=== PATIENT | male | born 1935 | race Caucasian/White ===

== ENCOUNTER 2016-09-13 10:49 | Inpatient (IN) | payer MEDICARE, BC ==
--- NOTE | ~2016-09-13 | MR60 ---
[facility] A Service of [facility] RADIOLOGY TEXT RESULTS PATIENT: CORBY SUBRAMANIAN LOCATION: [facility] 566-01 : 36 UNIT #: [id number] AGE: [address]: Jah Muller MD SEX: M ORDER DR: [id number] [facility] [address]. [place], [place] [address] [id number] I MR#: [id number] Acc #: [id number] NAME: CORBY SUBRAMANIAN. : 1935 SEX: M STUDY DATE/TIME: 09/14/2016 22:26 UNIT: [facility] ROOM: [facility] STUDY DESCRIPTION: MR Foot Wo Contrast Lt Attending Physician: Jah Muller M.D. Ordering Physician: Jah Muller M.D. Primary Care Physician: Jah Muller M.D. MRI CENTER REPORT This report is preliminary unless electronic signature is present. EXAM MRI of the left ankle and foot without contrast, 09/14/2016. COMPARISON MRI of the left ankle and hindfoot, 03/02/2016. HISTORY Order states MRI both feet, osteomyelitis. History sheet states chronic sores on feet. Diabetes. Sores on heels and toes. Left foot surgery March 2016, left foot debridement. COMPARISON MRI left foot 03/02/2016 and consultation report 09/13/2016. FINDINGS No contrast was utilized as the patient is on hemodialysis for renal failure. It is unclear if the patient has undergone interval surgery for the lateral heel wound. There is a large at least 3.6 x 2.6 (AP by craniocaudal) wound or ulceration along of the lateral hindfoot adjacent to the calcaneus. Compared to 03/02/2016, there is progressive posterolateral calcaneal edema, debridement/deformity, low signal correlating with sclerosis, and peripheral T1 marrow replacement compatible with osteomyelitis. There is no noncontrast evidence of soft tissue or intraosseous abscess. The patient is status post amputation of the fourth toe at the level of the proximal aspect of the proximal phalanx. There is also evidence of resection of the distal fifth metatarsal with associated forefoot soft tissue deformity. Specific locations of forefoot or toe wound is not known at the time of this dictation. No large or sizeable wounds are STS. [facility] A Service of [facility] RADIOLOGY TEXT RESULTS PATIENT: CORBY SUBRAMANIAN LOCATION: [facility] 566-01 : 36 UNIT #: [id number] AGE: [address]: Jah Muller MD SEX: M ORDER DR: noted. There is no forefoot fluid collection to suggest an abscess. There is dorsolateral forefoot subcutaneous edema. There is no evidence of midfoot or forefoot osteomyelitis. No septic arthritis is noted. Generalized muscle atrophy with a mild component of edema is compatible with variable phases of muscle denervation, most commonly seen in the setting of peripheral neuropathy in a diabetic. No high-grade tendon pathology is noted. IMPRESSION 1. Progressive wound and/or debridement of the posterolateral heel soft tissues with MR findings compatible with progressive osteomyelitis. 2. No hindfoot abscess is noted. 3. Reportedly, the patient has open sores of the toes. Specific location is not known at the time of this dictation. No visible sizeable wounds are present. Postoperative changes of the fourth and fifth rays is present with soft tissue deformity. The midfoot and forefoot show no evidence of osteomyelitis or abscess. 4. No evidence of septic arthritis. 5. Subcutaneous edema in the dorsolateral hindfoot may be postoperative in etiology. Correlate for cellulitis. 6. Areas of muscle diffuse muscle atrophy with some areas of edema likely due to variable stages of muscle denervation, most commonly due to peripheral neuropathy in a diabetic. 7. See separate MRI right foot report. STAT * RESULT Dictated by... Kassidy Hall M.D. THIS IS AN ELECTRONICALLY VERIFIED REPORT Kassidy Hall M.D. at 09/15/2016 10:39 AM RITIKA/dorota TD: 09/15/2016 09:22 JOB #: [id number] MRI CENTER REPORT Page 1 of 1 COPY
--- NOTE | ~2016-09-13 | EKG ---
PATIENT: CORBY SUBRAMANIAN UNIT #: [id number] Ventricular Rate: 85 BPM Atrial Rate: 85 BPM P-R Interval: 304 ms QRS Duration: 74 ms Q-T Interval: 362 ms QTC Calculation(Bezet): 430 ms P Harmony: 30 degrees Calculated R Harmony: 46 degrees Calculated T Harmony: 50 degrees Diagnosis Line: Sinus rhythm with sinus arrhythmia with 1st degree Diagnosis Line: A-V block Diagnosis Line: Otherwise normal ECG Diagnosis Line: When compared with ECG of 14-SEP-2016 08:29, Diagnosis Line: (unconfirmed) Diagnosis Line: No significant change was found Diagnosis Line: Confirmed by RIA JONES MD ([id number]) on 09/15/2016 Diagnosis Line: 4:27:44 PM INTERPRETING MD: KAERN MATIAS
--- NOTE | ~2016-09-13 | CR124 ---
[facility] A Service of [facility] RADIOLOGY TEXT RESULTS PATIENT: CORBY SUBRAMANIAN LOCATION: [facility] 566-01 : 36 UNIT #: [id number] AGE: [address]: Jah Muller MD SEX: M ORDER DR: [id number] [facility] [address]. [place], [place] [address] [id number] I MR#: [id number] Acc #: [id number] NAME: CORBY SUBRAMANIAN : 1935 SEX: M STUDY DATE/TIME: 09/13/2016 17:03 UNIT: [facility] ROOM: [id number] STUDY DESCRIPTION: CR Foot 2 Views Rt Attending Physician: Jah Muller M.D. Ordering Physician: [facility] Primary Care Physician: Jah Muller M.D. MEDICAL IMAGING REPORT This report is preliminary unless electronic signature is present EXAM Right foot series 09/13/2016 HISTORY Wound. Pain, swelling, redness, diabetic ulcers, 3 toes amputated. Symptoms 4 months. History of diabetes. Pain, swelling, numbness. AP, lateral and oblique radiographs of the right foot are presented. FINDINGS Abnormal examination. The patient is status post amputation of digital rays 3, 4 and 5. These postoperative changes are stable. In the interval from 06/14/2016 there appears to have been fracture of the distal shaft of the second metatarsal bone. There is incomplete healing. It is conceivable that some portion of the appearance could be postoperative in nature. Please correlate with any surgery to this region. There are some bone fragments remaining at the level of the distal shaft/head of the second metatarsal and there is abnormal air density at this location as well. Associated prominent soft tissue swelling particularly over the dorsal aspect of the foot but also involving the plantar aspect. The constellation of findings is concerning for possible osteomyelitis involving the distal second metatarsal bone. The air density in this region could in part be a reflection of skin folds on the plantar aspect of the foot. Soft tissue ulceration containing air or soft tissue infection with gas forming organism should be in the differential diagnosis as well. The base of the proximal phalanx of the second digit shows irregular bony demineralization new compared to May 2016 and further concerning for osteomyelitis at this location. The first digital ray shows generalized bony demineralization. There is a subtle area of new lucency lateral aspect base of the proximal phalanx of the great toe. Given findings elsewhere on this study, the possibility of developing osteomyelitis at this location is a consideration. Extensive soft tissue STS. [facility] A Service of [facility] RADIOLOGY TEXT RESULTS PATIENT: CORBY SUBRAMANIAN LOCATION: [facility] 566-01 : 36 UNIT #: [id number] AGE: [address]: Jah Muller MD SEX: M ORDER DR: swelling is noted. Soft tissue swelling extends into the visualized distal foreleg. Extensive vascular calcification. If it would assist in patient management, the foot could be further evaluated for potential sites of osteomyelitis with MRI if the patient is a candidate. Dictated by... Xavier Desai M.D. THIS IS AN ELECTRONICALLY VERIFIED REPORT Xavier Desai M.D. at 09/14/2016 5:55 PM Hoda TD: 09/13/2016 17:27 JOB #: [id number] MEDICAL IMAGING REPORT Page 1 of 1 COPY
--- NOTE | ~2016-09-13 | CO ---
Unit #: [id number] #: [id number] Patient: CORBY SUBRAMANIAN [id number] [facility]. [place], [place] [address] [id number] I MR#: [id number] NAME: CORBY SUBRAMANIAN. ROOM: 566 Age: 80 Sex: M Admission Date: 09/13/2016 : 1935 Attending Physician: Jah Muller M.D. Primary Care Physician: Jah Muller M.D. Consultation Date: 09/14/2016 CONSULTATION REPORT REASON FOR CONSULTATION Possible new onset atrial fibrillation. 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 The patient denies ever having a mild cardioversion, cardiac catheterization or a two-dimensional echocardiogram. 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 The patient presented to the emergency room with complaints of mental status changes, confusion, and found himself on the floor the morning prior to admission. His random blood sugar was essentially okay. His workup was essentially unremarkable except for a hemoglobin of 7.1 and some pulmonary vascular congestion, even though his oxygen saturation was 92% on room air. The patient was admitted for further evaluation. During my interview the patient is awake and alert, in no acute distress. He denies any nausea, vomiting, fever, chest pain or shortness of air. He does endorse some chills. The patient states he has never been told he has an irregular heart rhythm before. Cardiology was consulted for possible new onset atrial fibrillation. PAST MEDICAL HISTORY 1. The patient denies any history of irregular heart rhythm, myocardial infarction, cardiac catheterization, stress test or two-dimensional echocardiogram. 2. Most recent hospital admission to [facility] was in 02/2016 for acute left diabetic heel ulcer with gangrene and debridement of that ulcer. 3. Diabetes type 2 with peripheral neuropathy, retinopathy and nephropathy. 4. Endstage renal disease on hemodialysis Mondays, Wednesdays and Fridays. 5. BPH. 6. Lumbar stenosis. 7. Hypothyroidism. 8. Chronic anemia. 9. Orthostatic hypotension. 10. Peripheral arterial disease. Unit #: [id number] #: [id number] Patient: CORBY SUBRAMANIAN 11. Gout. 12. Gallstones. 13. Hypothyroidism. 14. Large ventral abdominal wall hernia. 15. Possible restrictive lung disease. 16. Chronic immobility. 17. Hypertension. PAST SURGICAL HISTORY 1. Debridement of left diabetic gangrene ulcer in 02/2016. 2. Left fourth toe amputation. 3. Right last three toes amputation. 4. Multiple diabetic foot debridements. 5. Tonsillectomy. SOCIAL HISTORY The patient is and lives with his . He does use a wheelchair at home. He denies any tobacco, alcohol or illicit drug abuse. FAMILY HISTORY The patient reports that his father of myocardial infarction at the age of 63. ALLERGIES Penicillin. CURRENT MEDICATIONS 1. Lantus 6 units subcutaneous at bedtime. 2. Allopurinol 100 mg p.o. daily. 3. Neurontin 100 mg p.o. t.i.d. 4. Multivitamin 1 tablet p.o. daily. 5. OxyContin 10/325 mg 1 tablet p.o. q.i.d. 6. Synthroid 0.112 mcg p.o. daily. 7. Flomax 0.4 mg p.o. daily at bedtime. 8. Aspirin 81 mg p.o. daily. 9. Plavix 75 mg p.o. daily. 10. Tobramycin. 11. Vancomycin. 12. Flagyl 500 mg p.o. q.8 h. 13. Diflucan 200 mg p.o. daily. REVIEW OF SYSTEMS A 10-point review of systems was done and is negative other than as per history of present illness. PHYSICAL EXAMINATION GENERAL: The patient is awake, alert and in no acute distress. VITALS: Temperature 98.4, heart rate 72, respiratory rate 20, blood pressure 100/34, oxygen saturation 96% on room air. HEENT: Head is atraumatic, normocephalic. Pupils equal, round and reactive to light. (1) intact. No drainage from ears or nares. NECK: Supple. Trachea midline. Normal carotid upstrokes. LUNGS: Diminished bilaterally. No wheezes, rales or rhonchi. HEART: S1 and S2. Regular rhythm. No murmurs, rubs or gallops. ABDOMEN: Soft, distended. Bowel sounds positive in all four quadrants. No hepatosplenomegaly is appreciated. SKIN: Warm and dry. The patient does have multiple bilateral lower extremity ulcers on his legs. Unit #: [id number] #: [id number] Patient: CORBY SUBRAMANIAN EXTREMITIES: No clubbing or cyanosis. The patient does have 1+ bilateral lower extremity edema. NEUROLOGIC: The patient is alert and oriented times three. He is pleasant and conversant. No focal deficits. Cranial nerves II through XII appear to be intact. DIAGNOSTIC STUDIES IMAGING: Chest x-ray shows vascular congestion. LABORATORY: White blood cell count 6.8, hemoglobin 8.5, hematocrit 26.5, platelets 225, sodium 136, potassium 4.3, chloride 100, CO2 26, BUN 24, creatinine 3.6, glucose 126. CARDIOVASCULAR: EKG shows sinus arrhythmia. Telemetry strips appear to show sinus rhythm with a second degree AV block with PACs and PVCs. ASSESSMENT 1. Sinus rhythm with second degree AV block with PACs and PVCs. 2. Altered mental status, now resolved. 3. Diabetes type 2 with retinopathy, neuropathy and nephropathy. 4. Peripheral artery disease. 5. Bilateral foot ulcers. 6. BPH. 7. Lumbar stenosis with immobility. 8. Left lower extremity edema. 9. Vascular congestion per chest x-ray. 10. Endstage renal disease on hemodialysis Mondays, Wednesdays and Fridays. 11. Hypertension. 12. Gout. 13. Possible restrictive lung disease. PLAN I agree with checking a two-dimensional echocardiogram and lower extremity Dopplers on the patient. Will also check a TSH, lipid panel and cardiac enzymes. Will check orthostatics. Will discuss with Dr. Bullock. At this time I do not feel that the rhythm strip shows atrial fibrillation. However, I will have Dr. Bullock to fully evaluate the patient. Again, the patient denies any history of atrial fibrillation and denies any chest pain. Dictated by... Carmen Hinds A.P.R.N. for Kayden Bullock M.D. AM/jonathan TD: 09/14/2016 09:51 JOB #: [id number] Unit #: [id number] #: [id number] Patient: CORBY SUBRAMANIAN CONSULTATION REPORT Page 1 of 1 X Carmen Hinds APRN CONSULTATION REPORT
--- NOTE | ~2016-09-13 | US84 ---
[id number] [facility] [address]. [place], [place] [address] [id number] I MR#: [id number] Acc #: [id number] NAME: CORBY SUBRAMANIAN : 1935 SEX: M STUDY DATE/TIME: 09/15/2016 14:54 UNIT: [facility] ROOM: 566 STUDY DESCRIPTION: US LE Veins Complete Ra Stdy Attending Physician: Jah Muller M.D. Ordering Physician: Jah Muller M.D. Primary Care Physician: Jah Muller M.D. MEDICAL IMAGING REPORT This report is preliminary unless electronic signature is present EXAM Bilateral lower extremity venous duplex, 09/15/2016. HISTORY Bilateral lower extremity pain for 2 days. Evaluate for deep venous thrombosis. TECHNIQUE Venous ultrasound examination of both lower extremities was performed using grayscale, spectral Doppler and color flow Doppler imaging. FINDINGS The examination is negative. There is no evidence of deep venous thrombus from the groin to the lower calf bilaterally. Visualized greater saphenous veins are also patent. IMPRESSION Negative examination. No evidence of lower extremity deep venous thrombosis. Dictated by... Manuel Myles M.D. THIS IS AN ELECTRONICALLY VERIFIED REPORT Manuel Myles M.D. at 09/18/2016 7:38 AM HEAVENLY/kartik TD: 09/15/2016 18:57 JOB #: [id number] MEDICAL IMAGING REPORT Page 1 of 1 COPY
--- NOTE | ~2016-09-13 | CO ---
Unit #: [id number] #: [id number] Patient: CORBY SUBRAMANIAN [id number] [facility] [address] [facility]. [place], [place] [address] [id number] I MR#: [id number] NAME: CORBY SUBRAMANIAN. ROOM: 566 Age: 80 Sex: M Admission Date: 09/13/2016 : 1935 Attending Physician: Jah Muller M.D. Primary Care Physician: Jah Muller M.D. Consultation Date: 09/13/2016 CONSULTATION REPORT REASON FOR CONSULTATION Change in mental status. PATIENT IDENTIFICATION This is a 80-year-old right-handed male evaluated in ER room 15 at [facility]. SOURCE OF INFORMATION Obtained from the patient as well as the medical record. HISTORY OF PRESENT ILLNESS This is a very pleasant 80-year-old right-handed male with the past medical history of end-stage renal disease on hemodialysis, diabetes mellitus with diabetic retinopathy, nephropathy and neuropathy, hypertension, COPD, peripheral arterial disease and other multiple medical issues, who presented to [facility] after family called EMS regarding a change in mental status. He personally is aware that he had a change in mental status but is still mildly confused, I am uncertain of his baseline. He can give some history but I am uncertain of how reliable he is. I did make an attempt to call his via the telephone and was unable to reach her at this time. He is oriented to person and place. He can tell me that it is Sunday, he believes it to be September 2016. According to the EMS sheet, the patient had an onset of confusion about three days ago and has had some intermittent confusion. Per EMS, family had called regarding his altered mental status and confusion, apparently he was hearing roosters in his head. When I spoke with the patient, he admits to hearing birds flying around in his head and admits that they were not there but that he heard them. He states that he felt a little bit confused this morning. He states he actually was asleep and woke up on the floor and was uncertain how he got there. He denies any headache, fever or chills. He denies any focal weakness or paresthesia, any loss of consciousness or loss of awareness. He denies any abdominal pain, nausea, vomiting, palpitations, double vision, blurred vision, loss of vision, neck pain, or speech changes. Again, he is oriented though has some difficulty with time. He has clear speech. Cognitively, though, he does have some difficulty following some commands. He does have some difficulty with short-term recall but nothing on exam currently to suggest an acute primary neurologic issues. His head CT done in the ED without contrast, on 09/13/2016, was negative for any acute abnormality in the brain. It does show moderate generalized atrophy and a chronic left paracentral pontine lacunar infarct, not changed from prior study. There appear to be extensive vascular calcifications and mild mucosal thickening in the paranasal sinuses but no indication of acute sinusitis and no fracture. He does have a history of lower extremity Unit #: [id number] #: [id number] Patient: CORBY SUBRAMANIAN wounds and surgery and both of his feet are wrapped. His right lower extremity appears to be edematous with erythema and warm and he complains of pain there. He apparently has not been on antibiotics for some time and states he is supposed to be getting antibiotics from wound care at the [facility] today. His white count is not elevated, it is 8.6. He is anemic with hemoglobin 7.1 and hematocrit 22.0 with normal MCV, MCH and MCHC and RDW 17.1 and platelet count 218. He does have chronic anemia documented in the medical record with hemoglobin running between 7 and 10. Otherwise, labs are essentially unremarkable. His sodium is 133, chloride is 96, calcium 8.2, albumin 2.7, otherwise BMP is unremarkable with the exception of his known end-stage renal disease with a BUN of 45, creatinine 6.2, estimated GFR 7.9. His alcohol level is 5. His chest x-ray does not show any acute findings. There is mild cardiomegaly and mild vascular congestion but no consolidation is seen. Questionable small left pleural effusion versus pleural thickening. His wound culture does show many gram-negative rods and rare gram-positive cocci in pairs. His glucose on arrival was 148. He was admitted for change in mental status, volume overload and anemia of chronic disease. His EKG does show an arrhythmia. On the EKG sheet, it shows atrial fibrillation with slow ventricular response with complex junctional pacemaker though when looking at it he does not appear to actually be in atrial fibrillation. P waves appear to be present. Will defer to Cardiology for pending read. Patient denies any current complaints other than his right lower extremity pain. PAST MEDICAL HISTORY 1. Last visit to [facility] 03/02 through 03/13/2016 for acute left diabetic heel ulcer with gangrene, status post debridement of the left heel ulcer on 03/07/2016. 2. Type 2 diabetes mellitus with diabetic peripheral neuropathy, retinopathy and nephropathy. 3. End-stage renal disease on hemodialysis Sunday, Sunday, and Sunday. 4. BPH. 5. Lumbar spinal stenosis. 6. Hypothyroidism. 7. Chronic anemia. 8. Orthostatic hypotension. 9. Peripheral arterial disease. 10. Gout. 11. Gallstones. 12. Large ventral abdominal wall hernia. 13. Possible restrictive pulmonary disease. 14. Chronic immobility, he uses a wheelchair at baseline. 15. Hypertension. 16. Tonsillectomy. 17. Left fourth toe removal. 18. Right last three toe removals. 19. Multiple foot debridements. ALLERGIES Penicillin. HOME MEDICATIONS His medication reconciliation is being done, there is not a medication list on the chart. He is currently only on normal saline here. According to his Discharge Summary from 2015, he was discharged on: 1. Flomax. 2. Neurontin. Unit #: [id number] #: [id number] Patient: CORBY SUBRAMANIAN 3. Lantus. 4. Zyloprim. 5. Multivitamin. 6. Aspirin. 7. Plavix. 8. Endocet. 9. Synthroid. 10. Tobramycin. 11. Vancomycin. 12. Diflucan. 13. Flagyl. FAMILY HISTORY Noncontributory to the presenting condition. SOCIAL HISTORY The patient is . He lives with his . He uses a wheelchair at baseline. He is able to do things around the house including cooking and cleaning with his wheelchair, I am uncertain of how reliable the patient is, however, regarding his history. He has no documented history of tobacco use, alcohol use, or illicit drug use. He is documented as being and states that he is and lives with his . His is listed as his next of kin. REVIEW OF SYSTEMS A 12-point review of systems was attempted, pertinent positives are as discussed above, otherwise negative. PHYSICAL EXAMINATION VITAL SIGNS: Temperature 98.6 he has been afebrile here, pulse 103, respirations 19, blood pressure 101/47, his blood pressure on arrival was also 101/47, oxygen saturation 96%. Height 6 feet 1 inches, weight 196 pounds, BMI 25. NEUROLOGIC: The patient is awake when I enter the room. He is resting, calm and pleasant and appropriate. He is oriented to person, he is oriented to place. He tells me it is September 2016. He tells me that it is Sunday. He does have some trouble following two- and three-step commands. He has some trouble with short-term recall. Otherwise, his speech is clear, he is not aphasic, dysarthric, or apraxic. He does get confused throughout interview with some questions and commands. CRANIAL NERVES: He demonstrates full johnson of vision. Eyes are conjugate without ptosis or nystagmus. Pupils are equal, round, reactive, 3+ brisk. Extraocular movements are intact. Sensation to face and scalp is intact. Strength of muscles of facial expression is intact. Hearing is intact to finger rub and conversation. Tongue is midline. Uvula is midline. Palate elevation is normal. Head turning and shoulder shrug is unremarkable. He denies headache. His neck is supple. MOTOR: He demonstrates normal bulk and normal tone. His strength is 5/5 in all extremities though he does have a little bit of difficulty with the right lower extremity and complains of pain with assessment of that leg but is at least 5-/5. Again, he does have erythema and edema to the right lower extremity. It is warm and painful to touch distally. SENSORY: Intact proximally, he does have some difficulty distally with differentiating soft touch and pinprick. GAIT AND ROMBERG: Deferred. REFLEXES: I was unable to elicit. Toes are difficult to evaluate as he is wrapped bilaterally around his feet. COORDINATION: Unremarkable. He has no past pointing. Normal Unit #: [id number] #: [id number] Patient: CORBY SUBRAMANIAN [id number]. DIAGNOSTIC STUDIES LABORATORY: As discussed above fully. IMAGING: As discussed above. IMPRESSION 1. Change in mental status with hallucinations and impaired cognition. Appears to be improved currently, question is what is his baseline. 2. Right lower extremity wound, questionable cellulitis. 3. Anemia with history of anemia of chronic disease. 4. End-stage renal disease on hemodialysis. 5. Mild hyponatremia, mild hypocalcemia. PLAN From a neurologic standpoint, we will observe currently. We need to speak with his about what his baseline is and what she observed actually happening that prompted her to call EMS. No report of syncope or any focal neurologic symptoms. Exam is currently nonspecific with no focal deficits reported or observed. He does have some cognitive difficulty but I am uncertain of what his baseline is. He certainly has multiple chronic conditions and generalized atrophy and extensive calcifications on his CT and he is 80 years of age. Nothing currently, however, to suggest an acute primary neurologic etiology. However, will follow the patient along with you and check further metabolic causes for mental status changes and I will discuss the case with Dr. Diallo and we will follow along with you. Will check a B12, folate, urinalysis with C and S if indicated. Please call for any questions or issues. We thank you very much for allowing us to assist in the care of this patient. Dictated by... Lalitha Curry A.P.R.N. for Leena Mo/oswaldo TD: 09/13/2016 21:37 JOB #: [id number] CONSULTATION REPORT Page 1 of 1 X Lalitha Curry PATENT ATTORNEY X CONSULTATION REPORT
--- NOTE | ~2016-09-13 | MR61 ---
[facility] A Service of [facility] & [facility] RADIOLOGY TEXT RESULTS PATIENT: CORBY SUBRAMANIAN LOCATION: [facility] 566-01 : 36 UNIT #: [id number] AGE: [address]: Jah Muller MD SEX: M ORDER DR: [id number] [facility] [address] [facility] [place], [place] [address] [id number] I MR#: [id number] Acc #: [id number] NAME: CORBY SUBRAMANIAN. : 1935 SEX: M STUDY DATE/TIME: 09/14/2016 23:05 UNIT: [facility] ROOM: [facility] STUDY DESCRIPTION: MR Foot Wo Contrast Rt Attending Physician: Jah Muller M.D. Ordering Physician: Jah Muller M.D. Primary Care Physician: Jah Muller M.D. MRI CENTER REPORT This report is preliminary unless electronic signature is present. EXAM MRI of the right ankle and foot, without contrast, 09/14/2016. COMPARISON Right foot radiographs, 09/13/2016, and MRI of the right forefoot, 06/17/2012. Consultation report, 09/13/2016. HISTORY Order states MRI both feet. Osteomyelitis. History sheet states chronic sores on feet. Diabetes. Sores on heels and toes. No reported right foot surgery. 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 Specific location of the wounds is not reported. There is probable skin loss or shallow wound of the plantar medial hindfoot, adjacent to the calcaneus potentially measuring up to 2.7 cm transverse. Correlate clinically. There is no evidence of underlying abscess or osteomyelitis. Skin thickening is suspected of the posterolateral heel. There is an apparent plantar forefoot wound measuring approximately 11 x 5 mm (AP x transverse), with a large confluent zone of soft tissue signal, which could reflect granulation and/or inflammatory tissue located just lateral to the 1st metatarsal head. Tissue necrosis cannot be assessed in the absence of IV contrast. The wound is plantar to the fracture deformity of the distal 2nd metatarsal shaft and absent or destroyed 2nd metatarsal head. There is T1 marrow replacement of the 2nd metatarsal, as well as the proximal phalanx of the 2nd toe, compatible with osteomyelitis. 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 A linear signal void in the soft tissues plantar to the ulcer could reflect a bony fragment, foreign body, etc. [facility] A Service of [facility] RADIOLOGY TEXT RESULTS PATIENT: CORBY SUBRAMANIAN LOCATION: [facility] 566-01 : 36 UNIT #: [id number] AGE: [address]: Jah Muller MD SEX: M ORDER DR: There is a chronic fracture deformity of the proximal phalanx of the great toe. The great toe shows no evidence of osteomyelitis. Distal phalanx of the 2nd toe shows no evidence of osteomyelitis. There is probable osteomyelitis of the middle phalanx of the 2nd toe. There has been a significant change in the appearance of the midfoot since 06/17/2012. There is diffuse T1 marrow replacement of the cuneiforms, navicular, 2nd metatarsal base, and possibly to a minimal degree, the 4th metatarsal base. There are a few small low signal foci in the dorsal aspect of the navicular. Differential considerations lie between midfoot osteomyelitis and/or acute phase neuroarthropathy. There is a small amount of fluid in the deformed navicular-medial cuneiform articulation. No midfoot ulceration is noted. There is generalized muscle atrophy. Subcutaneous edema is noted diffusely, but most prominently in the lower leg and ankle region. Nonspecific marrow edema in the anterior half of the talus and the anterior calcaneus is most likely reactive. There is a small tibiotalar effusion. IMPRESSION 1. Suspected subtle plantar medial heel/calcaneal region skin wound or ulceration without evidence of underlying osteomyelitis or abscess. 2. Plantar forefoot wound or ulceration plantar to the deformed distal 2nd metatarsal with a large zone of underlying abnormal soft tissue, which is difficult to characterize in the absence of IV contrast. Nonetheless, there is evidence of osteomyelitis involving nearly the entire 2nd metatarsal as well as the proximal and probably the middle phalanges of the 2nd toe. There is a linear low signal focus in the soft tissue process deep to the wound, which could reflect a bony fragment, foreign body, etc. No forefoot abscess is noted. 3. 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 4. Significant new severe abnormality throughout the midfoot with extensive T1 marrow replacement, osseous deformities, and potentially even a small amount of gas in the region of the dorsal navicular. Findings are compatible with midfoot extensive osteomyelitis and/or acute phase neuroarthropathy. Small amount of fluid is noted in the region of the dorsal navicular, but there is no mass-like or sizable abscess. 5. Generalized subcutaneous inflammation, edema, or cellulitis. 6. Generalized muscle atrophy. 7. Chronic fracture deformity, proximal phalanx, great toe. STAT * RESULT Dictated by... [facility] A Service of [facility] RADIOLOGY TEXT RESULTS PATIENT: CORBY SUBRAMANIAN LOCATION: [facility] 566-01 : 36 UNIT #: [id number] AGE: [address]: Jah Muller MD SEX: M ORDER DR: Kassidy Hall M.D. THIS IS AN ELECTRONICALLY VERIFIED REPORT Kassidy Hall M.D. at 09/15/2016 12:22 PM RITIKA/kartik TD: 09/15/2016 10:20 JOB #: [id number] MRI CENTER REPORT Page 1 of 1 COPY
--- NOTE | ~2016-09-13 | HP ---
Unit #: [id number] #: [id number] Patient: CORBY SUBRAMANIAN [id number] [address] [place], [place] [address] [id number] MR#: [id number] NAME: CORBY SUBRAMANIAN. ROOM: 84659 Age: 80 Sex: M Admission Date: 09/13/2016 : 1935 Attending Physician: Jah Muller M.D. Primary Care Physician: Jah Muller M.D. 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 Random blood sugar was okay. Workup was essentially unremarkable except for hemoglobin of 7.1 and some pulmonary vascular congestion although his O2 saturation on room air was 92%. He is admitted for further evaluation. Currently, he is awake, alert, oriented to place, person, and time but missed the month but got the day of the week. He has already been seen by neurology. Hemodialysis is planned as this was his regular day. He is also to get a blood transfusion during hemodialysis to avoid further pulmonary edema. He has no other complaints but has ongoing problems with wounds on both feet which he is seeing podiatry outpatient for. He has had some pain and swelling in his right leg but there is no marked erythema just some peripheral edema which he says he has had for the past week or so with intermittent pain. He denies any fever, chills, trauma, headaches, chest pain, palpitations, diarrhea, or any other symptoms on review. ALLERGIES He has stated allergies to penicillin. MEDICATIONS His medications prior to admission: 1. Flomax 0.4 mg p.o. b.i.d. 2. Neurontin 100 mg p.o. t.i.d. 3. Lantus 6 units subcutaneous nightly. 4. Multivitamin one daily. 5. Aspirin 81 mg daily. 6. Endocet 10/325 one q.i.d. p.r.n. for pain. 7. Plavix 75 mg p.o. daily. 8. Synthroid 112 mcg p.o. daily. 9. Proscar 5 mg p.o. daily. 10. Allopurinol 100 mg p.o. daily. 11. Sensipar 30 mg p.o. daily. 12. Lipitor 10 mg p.o. daily. PAST SURGICAL HISTORY 1. Tonsillectomy. 2. Left fourth toe removal. 3. Right third, fourth, and fifth toe removal. 4. Multiple foot debridements. Unit #: [id number] #: [id number] Patient: CORBY SUBRAMANIAN PAST MEDICAL HISTORY 1. Hypertension. 2. Umbilical hernia. 3. Chronic renal failure on hemodialysis. 4. Type 2 diabetes mellitus with nephropathy, neuropathy, and retinopathy. 5. Hypothyroidism. 6. Gout. 7. Chronic anemia. 8. Lumbar spinal stenosis. SOCIAL HISTORY , not employed. Nonsmoker. Nondrinker. No street drug use. FAMILY HISTORY Noncontributory. PHYSICAL EXAMINATION GENERAL: Again, he is awake, alert, oriented to person and place, the year and the day of the week but not the month. He stated it was September instead of August. VITAL SIGNS: In any case, he is afebrile. Pulse 69, respirations 18, blood pressure 129/50, room air O2 saturations 92%. HEENT: Unremarkable. NECK: Supple without JVD, bruits, adenopathy, or thyromegaly. CHEST: Diffusely decreased breath sounds with scant bibasilar rales. HEART: Regular rate and rhythm without any murmurs, rubs, or gallops. ABDOMEN: Large, soft, nondistended, nontender with positive bowel sounds and a large umbilical hernia which is at least 4 to 5 cm in size. It is not reducible. EXTREMITIES: Has wrappings on both heels. I can see open eschars on both heels. His right lower extremity has 2+ pitting edema without any palpable cords or Deni sign, although he has peripheral neuropathy so it is difficult to tell as he has no pain in either foot and no sensation, same. NEUROLOGIC: Shows no focal deficits. DIAGNOSTIC STUDIES LABORATORY: Random blood sugar 148. CBC normal except for a hemoglobin of 7.1 with a normal MCV, MCH. RDW slightly low at 17.1. Platelets and white count are normal. CMP is normal except for sodium of 133, random blood sugar 151, BUN 45, creatinine 6.2, GFR 7.9, calcium 8.2, albumin 2.7. IMAGING: Single view, portable chest x-ray shows mild cardiomegaly, mild vascular congestion, questionable small pleural effusion versus pleural thickening. CT scan of the head shows no acute abnormalities. There is moderate generalized atrophy. Chronic left paracentral pontine lacunar infarct. Extensive vascular calcifications. Mild mucosal thickening of the paranasal sinuses. CARDIOVASCULAR: EKG was read as atrial fibrillation but looks more like a sinus arrhythmia with first degree AV block and low voltage QRS complexes. IMPRESSION 1. Mental status changes of unclear etiology: The patient has had a Unit #: [id number] #: [id number] Patient: CORBY SUBRAMANIAN previous admission for same, which we never discovered the cause. 2. End-stage renal disease on hemodialysis Sunday, Sunday, Sunday. 3. Type 2 diabetes mellitus with retinopathy, neuropathy, nephropathy. 4. Peripheral arterial disease. 5. Bilateral foot diabetic ulcers. 6. Hypothyroidism. 7. Benign prostatic hypertrophy. 8. Lumbar spinal stenosis. 9. Gout. 10. Left lower extremity edema. 11. Pulmonary edema. 12. Normocytic normochromic anemia. PLAN 1. MRI of the brain. 2. Folic acid. 3. ABG on room air. 4. Drug screen. 5. B12. 6. Ammonia level. 7. Give one dose of Narcan. 8. Hold Neurontin and oxycodone. 9. Hemodialysis today. 10. Transfuse 1 unit during hemodialysis. 11. Recheck CBC in the morning. 12. Podiatry consult. 13. Neurology consult. 14. Right lower extremity venous ultrasound to rule out deep venous thrombosis. 15. Start Lovenox for deep venous thrombosis prophylaxis. 16. Further evaluation pending results above. Dictated by Jah Muller M.D. MICHAEL/ramonita TD: 09/13/2016 15:39 JOB #: [id number] HISTORY AND PHYSICAL Page 1 of 1 X Jah Muller MD X HISTORY AND PHYSICAL
--- NOTE | ~2016-09-13 | US136 ---
[facility] A Service of [facility] & [facility] RADIOLOGY TEXT RESULTS PATIENT: CORBY SUBRAMANIAN LOCATION: [facility] 566-01 : 36 UNIT #: [id number] AGE: [address]: Jah Muller MD SEX: M ORDER DR: [id number] [facility] [address]. [place], [place] [address] [id number] I MR#: [id number] Acc #: [id number] NAME: OCRBY SUBRAMANIAN. : 1935 SEX: M STUDY DATE/TIME: 09/16/2016 15:26 UNIT: [facility] ROOM: [facility] STUDY DESCRIPTION: US U/L Ext Art Study Ltd Bilat Attending Physician: Jah Muller M.D. Ordering Physician: Jah Muller M.D. Primary Care Physician: Jah Muller M.D. MEDICAL IMAGING REPORT This report is preliminary unless electronic signature is present EXAM Bilateral ankle-brachial indices HISTORY Surgery. Myocardial infarction. Heart disease. Ulcerations right/left trophic nails. Right/left peripheral arterial disease. FINDINGS Ankle-brachial indices performed bilaterally. All pressure measurements in millimeters of mercury. Comparison 05/10/2012. Right brachial pressure 119. Left brachial pressure not obtained secondary to vascular access in the left arm. Distal right pressure is as follows: dorsalis pedis at ankle noncompressible, posterior tibial at ankle noncompressible, great toe 49. Ankle-brachial index could not be calculated. Toe-brachial index 0.41. Pulse volume recordings incompletely visualized. They appear to be biphasic at the ankle and biphasic but of markedly dampened appearance and low amplitude at the right great toe. On the left distal pressures are as follows: posterior tibial at ankle 142, dorsalis pedis at ankle 135, great toe 79, ankle-brachial index 1.19. Pulse volume recordings similar to those on the right but with significantly improved amplitude of the great toe waveform. IMPRESSION 1. Noncompressibility of vessels at the right ankle and some elevation of pressures at the left ankle suggests underlying vascular calcification which may decrease the overall sensitivity of this examination. Due to noncompressibility at the right ankle, ankle-brachial index could not be determined. The right toe-brachial index of 0.41 is abnormally low and could reflect hemodynamically STS. [facility] A Service of [facility] RADIOLOGY TEXT RESULTS PATIENT: CORBY SUBRAMANIAN LOCATION: [facility] 566-01 : 36 UNIT #: [id number] AGE: [address]: Jah Muller MD SEX: M ORDER DR: significant atherosclerotic disease in the arterial tree of the right lower extremity as well as small vessel disease in the right foot. Correlate with the patient's clinical status. If further anatomic assessment would assist in management and if the patient is a candidate, consider CT angiography for further evaluation. 2. The left ankle-brachial index is 0.19. This is a normal value. There appears to be adequate perfusion of the left lower extremity through the level of the ankle in the resting state. Toe-brachial index is 0.66 on the left which may suggest at least moderate small vessel disease in the left foot. Dictated by... Xavier Desai M.D. THIS IS AN ELECTRONICALLY VERIFIED REPORT Xavier Desai M.D. at 09/19/2016 6:09 PM Gina TD: 09/17/2016 12:23 JOB #: [id number] MEDICAL IMAGING REPORT Page 1 of 1 COPY
--- NOTE | ~2016-09-13 | MR18 ---
[facility] A Service of [facility] RADIOLOGY TEXT RESULTS PATIENT: CORBY SUBRAMANIAN LOCATION: [facility] 5611-16 : 36 UNIT #: [id number] AGE: [address]: Jah Muller MD SEX: M ORDER DR: [id number] [facility] [address] [place], [place] [address] [id number] I MR#: [id number] Acc #: [id number] NAME: CORBY SUBRAMANIAN. : 1935 SEX: M STUDY DATE/TIME: 09/14/2016 21:32 UNIT: [facility] ROOM: [facility] STUDY DESCRIPTION: MR Brain Wo Contrast Attending Physician: Jah Muller M.D. Ordering Physician: Jah Muller M.D. Primary Care Physician: Jah Muller M.D. MRI CENTER REPORT This report is preliminary unless electronic signature is present. EXAM Brain MR without contrast 09/14/[address] 09/13/2016 PROCEDURE Routine unenhanced brain MRI HISTORY 3-day history of hallucination and confusion. FINDINGS There is no MR evidence of acute ischemia. There is no restricted diffusion. There is advanced volume loss but no hydrocephalus or extraaxial fluid collection. There is no acute or chronic hemorrhage. There is mild nonspecific white matter change and normal flow voids are seen in the cerebral vessels. No mass is seen. There is maxillary sinus mucosal thickening and the ocular lenses have been replaced, but the extracranial structures are otherwise normal. Advanced volume loss, modest nonspecific white matter change, no acute ischemia or other acute abnormality. Dictated by... Shar Carpenter M.D. THIS IS AN ELECTRONICALLY VERIFIED REPORT Shar Carpenter M.D. at 09/15/2016 4:53 PM STACEY/danni [facility] A Service of [facility] & [facility] RADIOLOGY TEXT RESULTS PATIENT: CORBY SUBRAMANIAN LOCATION: [facility] 5611-16 : 36 UNIT #: [id number] AGE: [address]: Jah Muller MD SEX: M ORDER DR: TD: 09/15/2016 08:32 JOB #: [id number] MRI CENTER REPORT Page 1 of 1 COPY
--- NOTE | ~2016-09-13 | CO ---
Unit #: [id number] #: [id number] Patient: CORBY SUBRAMANIAN [id number] [address] [place], [place] [address] [id number] I MR#: [id number] NAME: CORBY SUBRAMANIAN. ROOM: 566 Age: 80 Sex: M Admission Date: 09/13/2016 : 1935 Attending Physician: Jah Muller M.D. Primary Care Physician: Jah Muller M.D. CONSULTATION REPORT DATE OF SERVICE 09/11/2016 REASON FOR DIAGNOSIS Management of end-stage renal disease. HISTORY OF PRESENT ILLNESS Mr. Subramanian is a 80-year-old white male with a longstanding history of diabetes mellitus along with peripheral neuropathy and end-stage renal disease whom we follow for his dialysis needs. The patient is admitted to the hospital now after presenting with complaints of increasing right foot pain. The patient is a poor historian. He reports he has a long history of foot and wound issues and is under the care of surgeons or wound care. He appears to have experienced increasing pain prompting this presentation but is not clear as to the progression from his usual status. He currently denies running a fever and reports that the swelling has not changed from before. He does report that currently the pain in his calf is less than it has been in the past. PAST MEDICAL HISTORY Diabetes mellitus currently maintained on insulin with complications including neuropathy and renal failure. He also has a history of hypertension, gout and spinal stenosis. There is also a history of anemia of chronic disease. 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 He had a remote tonsillectomy. SOCIAL HISTORY The patient reports he is and lives with his . He has two sons, one of whom lives in the area. He reports that he stopped smoking approximately 40 years ago. He reports he stopped drinking approximately 10 months ago. FAMILY HISTORY Noncontributory. ALLERGIES Penicillin is listed. However, he reports he is not allergic to penicillin. Unit #: [id number] #: [id number] Patient: CORBY SUBRAMANIAN MEDICATIONS AT THE TIME OF ADMISSION 1. Flomax 0.4 mg b.i.d. 2. Neurontin 100 mg p.o. t.i.d. 3. Lantus insulin 6 units subcutaneous h.s. 4. Multivitamin one daily. 5. Aspirin one daily. 6. Endocet 10/325 mg q.i.d. p.r.n. 7. Plavix 75 mg. 8. Synthroid 110 mcg one p.o. daily. 9. Finasteride 5 mg daily. 10. Allopurinol 100 mg p.o. daily. 11. Cinacalcet 30 mg daily. 12. Lipitor 10 mg daily. 13. Additionally, he received Aranesp 80 mcg through dialysis. PHYSICAL EXAMINATION VITAL SIGNS: Blood pressure 100/53. Pulse 62. Respiratory rate 15. Temperature 97.9. HEENT: Head was normocephalic and atraumatic. Pupils are equal but somewhat small at approximately 2 mm and minimally responsive. Sclerae and conjunctivae were clear. NECK: Supple and without adenopathy. There was no jugular venous distention LUNGS: Clear to auscultation without rales or rhonchi. HEART: Regular rate. Normal S1 and S2. No murmurs or gallops were noted. ABDOMEN: Soft and nontender. No masses or organomegaly were noted. He has a tennis ball size umbilical hernia which is easily reduced. There were no surgical scars. GENITORECTAL: Exam was deferred. EXTREMITIES: Relatively normal left lower extremity except for his prior amputation. His heel area was dressed and was not examined. His right lower extremity appears to have some degree of chronic edema, although it was not red or warm. Additionally, he had his left ankle area wrapped which was not examined. His loss of toes on both sides were noted. SKIN: Unremarkable. There were no rashes or bruising. NEUROLOGIC: The patient was appropriate with a decent, although somewhat limited memory. He had no gross neurologic dysfunction. He did note that he had (1) sounded as if he had bird noises which he reports had been going on for several years. DIAGNOSTIC STUDIES LABORATORY: Normal serum sodium at 133, potassium 4.4, bicarb 26, BUN 45, creatinine 6.2 consistent with his chronic kidney disease. His calcium was slightly low at 8.2 and his phosphorous was elevated at 7.2. Other CMP components were unremarkable. The CBC showed a hemoglobin of 7.1 with a white count of 8.6 and a platelet count of 218. IMPRESSION 1. Diabetic foot ulcers. This is being addressed by his primary physician. 2. Possible mental status changes. He sounds more appropriate to me currently than he was described previously. It is noted he has been on narcotics for pain which may be a contributing factor. I am also worried about the possibility of infection causing some degree of confusion. 3. End-stage renal disease. 4. The patient is currently maintained on chronic hemodialysis in the Unit #: [id number] #: [id number] Patient: CORBY SUBRAMANIAN outpatient setting. He is due for dialysis today. His volume status looks reasonably decent. We will set him for dialysis. 5. Anemia. The patient has a chronic anemia related to his chronic disease. For the past several months, however, he has been in the 9 range including as recently as the 15th of this month. His hemoglobin on presentation today was significantly lower than usual and one would have to worry about the possibility of some form of blood loss. 6. Peripheral artery disease related to his diabetic foot wounds. 7. Diabetes mellitus. This is being addressed by his primary care physician. Thank you very much for the opportunity to participate in his care. Dictated by... Jewel Gilbert M.D. SAMUEL/darwin TD: 09/14/2016 10:06 JOB #: [id number] CONSULTATION REPORT Page 1 of 1 X Jewel Gilbert Jr, MD X CONSULTATION REPORT
--- NOTE | ~2016-09-13 | EKG ---
PATIENT: CORBY SUBRAMANIAN UNIT #: [id number] Ventricular Rate: 85 BPM Atrial Rate: 85 BPM P-R Interval: 264 ms QRS Duration: 84 ms Q-T Interval: 388 ms QTC Calculation(Bezet): 461 ms P [place]: 77 degrees Calculated R [place]: 40 degrees Calculated T [place]: 37 degrees Diagnosis Line: Sinus rhythm with 1st degree A-V block with Diagnosis Line: occasional Premature ventricular complexes Diagnosis Line: Otherwise normal ECG Diagnosis Line: When compared with ECG of 14-SEP-2016 13:34, Diagnosis Line: Premature ventricular complexes are now Present Diagnosis Line: Confirmed by PATSY NGUYEN MD ([id number]) on 09/19/2016 Diagnosis Line: 11:18:55 PM INTERPRETING MD: PATRICK MATIAS
--- NOTE | ~2016-09-13 | CR72 ---
[facility] A Service of [facility] & [facility] RADIOLOGY TEXT RESULTS PATIENT: CORBY SUBRAMANIAN LOCATION: [facility] 566-01 : 36 UNIT #: [id number] AGE: [address]: Jah Muller MD SEX: M ORDER DR: [id number] [facility] [address] [facility] [place], [place] [address] [id number] E MR#: [id number] Acc #: [id number] NAME: CORBY SUBRAMANIAN. : 1935 SEX: M STUDY DATE/TIME: 09/13/2016 9:37 UNIT: [facility] ROOM: STUDY DESCRIPTION: CR Chest Single View Portable Attending Physician: Luis Enrique Saavedra M.D. Ordering Physician: Luis Enrique Saavedra M.D. Primary Care Physician: Jah Muller M.D. MEDICAL IMAGING REPORT This report is preliminary unless electronic signature is present EXAM Portable chest in 2 views, 09/13/2016 HISTORY Right leg swelling for 1 week. FINDINGS There is redemonstrated mild cardiomegaly and mild vascular congestion but no consolidation is seen. Question small left pleural effusion versus pleural thickening. No pneumothorax. Dictated by... Shar Carpenter M.D. THIS IS AN ELECTRONICALLY VERIFIED REPORT Shar Carpenter M.D. at 09/15/2016 4:59 PM STACEY/torsten TD: 09/13/2016 11:04 JOB #: [id number] MEDICAL IMAGING REPORT Page 1 of 1 COPY
--- NOTE | ~2016-09-13 | CT71 ---
[facility] A Service of [facility] & [facility] RADIOLOGY TEXT RESULTS PATIENT: CORBY SUBRAMANIAN LOCATION: [facility] 566-01 : 36 UNIT #: [id number] AGE: [address]: Jah Muller MD SEX: M ORDER DR: [id number] [facility] [address] [place], [place] [address] [id number] E MR#: [id number] Acc #: [id number] NAME: CORBY SUBRAMANIAN. : 1935 SEX: M STUDY DATE/TIME: 09/13/2016 9:54 UNIT: [facility] ROOM: STUDY DESCRIPTION: CT Head Wo Contrast Attending Physician: Luis Enrique Saavedra M.D. Ordering Physician: Luis Enrique Saavedra M.D. Primary Care Physician: Jah Muller M.D. MEDICAL IMAGING REPORT This report is preliminary unless electronic signature is present EXAM CT head, 09/13/2016 HISTORY Confusion. Altered mental status. Hallucination from home. Right leg pain. Confusion. Auditory hallucinations for 3 days. Fell out of bed this a.m. TECHNIQUE This CT exam was performed with one or more of the following radiation dose reduction techniques: automatic exposure control, adjustment of mA and/or kV according to patient size, and iterative reconstruction. FINDINGS CT head performed from skull base through vertex without intravenous contrast. Comparison 10/20/2015. Some images degraded by streak/motion artifact. Brainstem shows chronic left paracentral pontine lacunar infarct. No acute brainstem abnormality. Cerebellum and cerebral hemispheres show overall preservation of villegas matter-white matter differentiation. No hemorrhage. No indication of acute cortical ischemia. The midline structures are nondisplaced. Ventricles, cisterns and sulci show moderate generalized enlargement consistent with moderate generalized atrophy. There is no intra or extraaxial mass effect or abnormal intracranial fluid collection. The intraorbital soft tissues are unremarkable. Extensive cavernous carotid and distal vertebral arterial calcifications. Intraorbital soft tissues unremarkable. Mild mucosal thickening in frontal sinuses, ethmoid air cells, sphenoid sinuses and visualized maxillary sinuses. No fracture. IMPRESSION 1. No acute abnormality is seen in the brain. If patient has ongoing neurologic symptoms, consider followup imaging. 2. Moderate generalized atrophy. [facility] A Service of [facility] & [facility] RADIOLOGY TEXT RESULTS PATIENT: CORBY SUBRAMANIAN LOCATION: [facility] 566-01 : 36 UNIT #: [id number] AGE: [address]: Jah Muller MD SEX: M ORDER DR: 3. Chronic left paracentral pontine lacunar infarct. No change from prior study. 4. Extensive vascular calcification. 5. No fracture. 6. Mild mucosal thickening in the paranasal sinuses as described above. No indication of acute sinusitis. Dictated by... Xavier Desai M.D. THIS IS AN ELECTRONICALLY VERIFIED REPORT Xavier Desai M.D. at 09/14/2016 5:55 PM Gina TD: 09/13/2016 11:20 JOB #: [id number] MEDICAL IMAGING REPORT Page 1 of 1 COPY
--- NOTE | ~2016-09-13 | EKG ---
PATIENT: CORBY SUBRAMANIAN UNIT #: [id number] Ventricular Rate: 56 BPM Atrial Rate: 77 BPM QRS Duration: 76 ms Q-T Interval: 414 ms QTC Calculation(Bezet): 399 ms Calculated R [place]: 48 degrees Calculated T [place]: 11 degrees Diagnosis Line: Atrial fibrillation with slow ventricular response Diagnosis Line: with a competing junctional pacemaker Diagnosis Line: Low voltage QRS Diagnosis Line: Abnormal ECG Diagnosis Line: When compared with ECG of 20-OCT-2015 08:13, Diagnosis Line: Atrial fibrillation has replaced Sinus rhythm Diagnosis Line: Vent. rate has decreased BY 38 BPM Diagnosis Line: Confirmed by RIA JONES MD ([id number]) on 09/13/2016 Diagnosis Line: 9:22:57 PM INTERPRETING MD: KAREN MATIAS
--- NOTE | ~2016-09-13 | OR ---
Unit #: [id number] #: [id number] Patient: CORBY SUBRAMANIAN [id number] [address] [address] [id number] I MR#: [id number] NAME: CORBY SUBRAMANIAN. ROOM: 566 Date of Procedure: 09/17/2016 Admission Date: 09/13/2016 Surgeon: Jason Andrade D.P.M. : 1935 Attending Physician: Jah Muller M.D. Primary Care Physician: Jah Muller M.D. OPERATIVE REPORT RESIDENT Evin Myles, PGY-3. PREOPERATIVE DIAGNOSES 1. Right ankle multiple diabetic foot ulcerations that are chronic in nature with osteomyelitis of the second metatarsal and diffusely about the midfoot. 2. Left foot diabetic heel ulceration down to the level of bone with osteomyelitis that is chronic of the calcaneus. PROCEDURES PERFORMED 1. Left heel wound debridement down to the level of bone with application of a wound VAC. 2. Right heel and right dorsal foot wound debridements down to the level of subcutaneous tissue. 3. Application of a wound VAC to the right heel. 4. Wound debridement, plantar right second metatarsal down to the level of bone with bone biopsy and attempted primary wound closure. SPECIMEN Bone biopsy of the right second metatarsal was taken and sent to Microbiology for culture and sensitivities. ANESTHESIA General. HEMOSTASIS Bilateral calf tourniquets were applied, but were not inflated for the case. Hemostasis was maintained with electrocautery and pressure. ESTIMATED BLOOD LOSS 50 mL. MATERIALS USED [facility] wound VAC at 125 mmHg. COMPLICATIONS None. INDICATIONS FOR PROCEDURE Mr. Subramanian is a 80-year-old male who was well known to Dr. Andrade, having undergone multiple prior surgical interventions for bilateral foot Unit #: [id number] #: [id number] Patient: CORBY SUBRAMANIAN wounds with osteomyelitis. 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 He is seen regularly in office where he undergoes wound care. At his last office appointment, the patient was prescribed antibiotics for suspected cellulitis; however, he failed to obtain these. Approximately one week after this, he presented to [facility] Emergency Department with altered mental status, which he was admitted for. We were consulted for management of the wounds. Due to the chronic nature of the wounds and the persistent osteomyelitis, we have elected to take the patient to the operating room for bilateral foot wound debridements with bone biopsies, so that targeted antibiotic therapy can be begun. The patient is amenable to this plan. The patient understands the procedure to be performed today as well as potential risks and complications involved. No guarantees or assurances have been given or implied. Consent was obtained preoperatively. All questions were answered at length. DESCRIPTION OF PROCEDURE The patient was brought to the operating room and placed on the operative table in the supine position. Anesthesia was induced. A time-out was held and the correct patient, procedure and site were verified and all team members were in agreement. The patient was already on scheduled preoperative antibiotics. Pneumatic tourniquets were placed about the bilateral calves. The surgical site was then scrubbed, prepped, and draped in the usual sterile manner. The tourniquets were not inflated for the duration of the case. Attention was then directed to the posterior aspect of the left heel where the patient was noted to have a full-thickness wound down to the level of the calcaneus. The wound was noted to have a mixed fibrotic and bony base. No abscess or fluctuance was appreciated adjacent to the bone. The wound was then debrided sharply using scalpel and curette down to the level of bone. The calcaneus was noted to be soft consistent with MRI findings of chronic osteomyelitis to this area. Good bleeding was noted throughout the dissection. The surgical site was then flushed with copious amounts of sterile normal saline. Wound measurements were obtained. The heel wound was noted to measure 3.5 x 3.5 cm and was down to the level of the calcaneus. We then elected to apply a wound VAC. For this purpose, the wound VAC sponge was cut to the appropriate size. The outline of the wound was then draped with wound VAC drape. The wound VAC was then applied in a typical fashion. Suction was tested and noted to be excellent. Attention was then directed to the right foot where 3 wounds were noted; one to the right heel, one to the right dorsum of the foot, and one to the right forefoot. We began with debridement of the right heel wound. The right heel wound was noted to have an overlying eschar, which was sharply resected. The eschar was noted to communicate down to the subcutaneous tissue. No abscess or tracking was noted. The subcutaneous tissue appeared healthy. Good bleeding was noted throughout the dissection. The wound base and margins were then freshened using a scalpel and curette. Hemostasis was attained using electrocautery. The wound was then flushed with copious amounts of sterile normal saline. Measurements were then obtained and the wound measured 2.5 x 3 cm x 0.2 cm in depth. We then elected to apply wound VAC to this heel wound as well. In a similar manner, we cut and sized the appropriate wound VAC foam and adhered to the heel using wound VAC drape. Suction was then applied and noted to be excellent. Unit #: [id number] #: [id number] Patient: CORBY SUBRAMANIAN We then directed our attention to the wound to the dorsal aspect of the right foot. This wound was then debrided of fibrotic tissue in the base using a curette and scalpel. No purulence or fluctuance was noted. The wound margins were then excised to healthy bleeding tissue using a scalpel. Good bleeding was noted throughout this dissection. The wound appeared healthy at this time. The wound was then flushed with copious amounts of sterile normal saline. The wound was measured at this point and noted to be 2 x 1.5 x 0.3 cm down to level of the subcutaneous tissue. We then directed our attention to the wound to the plantar aspect of the right forefoot plantar to the patient's second metatarsal. The wound margins were excised to healthy bleeding tissue in a 3:1 fashion. Good bleeding was noted throughout this. The wound base was then freshened with a curette; however, this wound was noted to communicate down to the level of the second metatarsal bone. The second metatarsal was noted to be soft and of poor quality consistent with osteomyelitis. A rongeur was then utilized to obtain a specimen of the second metatarsal to be sent to Microbiology for culture and sensitivities for directed antibiotic therapy. After a thorough debridement of the wound, the wound was then flushed with copious amount of sterile normal saline. The wound was then measured and noted to be 1.4 x 1 cm down to the level of bone. We elected to attempt primary closure of this wound. For this purpose, the wound edges were undermined slightly, so that they would no longer be inverted. The wound was then reapproximated using 2-0 nylon in a retention-type fashion with care taken to place minimal tension on the wound edges. The foot was then cleansed with copious amounts of sterile normal saline. The wound to the dorsum of the right foot was then bandaged using Xeroform, 4x4s, and Kerlix. Gauze sponges were then placed about both wound VAC tubings. The feet were then wrapped with Kerlix and bias wrap. The patient was then awoken from anesthesia. The patient tolerated the procedure and anesthesia well. The patient was transferred from the operating room to the recovery room with vital signs stable and vascular status intact to the bilateral feet. Dictated by... Evin Myles M.D. for Jason Andrade D.P.M. KT/cierra TD: 09/18/2016 00:31 JOB #: [id number] OPERATIVE REPORT Page 1 of 1 X X PROCEDURE OPERATIVE NOTE
--- NOTE | ~2016-09-13 | DS ---
Unit #: [id number] #: [id number] Patient: CORBY SUBRAMANIAN [id number] [address] [address] [id number] I MR#: [id number] NAME: CORBY SUBRAMANIAN. ROOM: 56 Age: 80 Sex: M Admission Date: 09/13/2016 : 1935 Discharge Date: 09/22/2016 Attending Physician: Jah Muller M.D. Primary Care Physician: Jah Muller M.D. DISCHARGE SUMMARY PRINCIPAL DISCHARGE DIAGNOSES 1. Acute cellulitis right lower extremity. 2. Bilateral osteomyelitis of the feet. 3. Bilateral diabetic foot ulcers. 4. Endstage renal disease, on hemodialysis. 5. 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 6. Hypothyroidism. 7. Gout. 8. Peripheral arterial disease. 9. Lumbar spinal stenosis. 10. Diabetic retinopathy. 11. Benign prostatic hypertrophy. 12. Mental status changes on admission consistent with delirium. 13. Anemia. 14. Pulmonary edema. 15. Hepatitis B surface antibody was sent and was positive at 17. PROCEDURES 1. Left heel wound debridement with application of wound V.A.C. on the left; right heel and right dorsal foot wound debridements with application of wound V.A.C. to the right heel; wound debridement plantar right second metatarsal bone with bone biopsy and primary closure on 09/17/16. 2. He was transfused one unit on admission during his dialysis. CONSULTANTS 1. Dr. Diallo from neurology. 2. Dr. Gilbert from nephrology. 3. Dr. Ariza from infectious disease. 4. Dr. Bullock from cardiology. REASON FOR HOSPITALIZATION This is a 80-year-old white male with history of endstage renal disease on hemodialysis; type 2 diabetes mellitus with neuropathy, nephropathy and retinopathy; peripheral arterial disease; lumbar spinal stenosis; BPH; gout; hypothyroidism; chronic anemia. Presented to the emergency room with confusion. Workup in the ER was essentially negative except his hemoglobin was 7.1, and he had pulmonary vascular congestion on his chest x-ray and with an O2 sat on room air of 92%. He was noted to have some swelling, erythema of his right lower extremity. In any case, the patient was admitted. Nephrology was consulted for dialysis. He was transfused one unit on admission during his dialysis. MRI of the bilateral feet was obtained and showed bilateral osteomyelitis and cellulitis of the right lower extremity. He was started on empiric antibiotics. Infectious Unit #: [id number] #: [id number] Patient: CORBY SUBRAMANIAN disease was consulted. His spring fitter was consulted, as well. Urine culture was no growth. Wound culture grew Citrobacter and Proteus, both sensitive to quinolones and cephalosporins. He was originally placed on Rocephin. Sed rate was over 120. CRP was 21.7. Ultrasound of the right lower extremity was negative for deep vein thrombosis. Hepatitis B surface antibody was sent and was positive at 17. The patient had hemodialysis here on Sunday, Sunday and Fridays, as he would at home. The patient had questionable episodes of A fib, and cardiology was consulted. ABIs were consistent with peripheral arterial disease, and vascular surgery was consulted but recommended no intervention at this time, and he is recommended Cipro for an additional approximately 33 days. The patient has constipation this morning and was given lactulose. DISCHARGE DIET He is on a regular diet. DISCHARGE MEDICATIONS 1. Flomax 0.4 mg b.i.d. 2. Tylenol 650 q.4 p.r.n. 3. Neurontin 100 mg t.i.d. 4. Norvasc 5 mg p.o. daily. 5. Lipitor 10 mg p.o. daily. 6. Lantus 6 units subcu q.h.s. 7. Allopurinol 100 mg p.o. daily. 8. Multivitamin 1 p.o. daily. 9. Proscar 5 mg p.o. daily. 10. Sensipar 30 mg p.o. daily. 11. Aspirin 81 mg daily. 12. Percocet 10/325 mg 1 q.i.d. p.r.n. 13. Plavix 75 mg p.o. daily. 14. Synthroid 112 mcg p.o. daily. 15. Cipro 500 mg daily until 10/25/16. FOLLOW-UP He is to have hemodialysis today, see me in one week. He is to see (1) in 5-7 days. He will continue his outpatient hemodialysis on Mondays, Wednesdays and Fridays. He is to have a weekly CBC, BMP, sed rate and CRP. NOTE: He is going home with a left wound V.A.C., which is to be changed by in 5-7 days. Dictated by... Leena Grajeda/chanell TD: 09/22/2016 09:22 JOB #: [id number] Unit #: [id number] #: [id number] Patient: CORBY SUBRAMANIAN Carmelita DISCHARGE SUMMARY Page 1 of 1 X Jah Muller MD X DISCHARGE SUMMARY
--- NOTE | ~2016-09-13 | EKG ---
PATIENT: CORBY SUBRAMANIAN UNIT #: [id number] Ventricular Rate: 81 BPM Atrial Rate: 81 BPM P-R Interval: 308 ms QRS Duration: 78 ms Q-T Interval: 388 ms QTC Calculation(Bezet): 450 ms P [place]: 46 degrees Calculated R [place]: 52 degrees Calculated T [place]: 53 degrees Diagnosis Line: Sinus rhythm with 1st degree A-V block Diagnosis Line: Otherwise normal ECG Diagnosis Line: When compared with ECG of 13-SEP-2016 09:22, Diagnosis Line: Sinus rhythm has replaced Atrial fibrillation Diagnosis Line: QT has lengthened Diagnosis Line: Confirmed by RIA JONES MD ([id number]) on 09/15/2016 Diagnosis Line: 3:30:04 PM INTERPRETING MD: KAREN MATIAS
--- NOTE | ~2016-09-13 | CO ---
Unit #: [id number] #: [id number] Patient: CORBY SUBRAMANIAN [id number] [facility]. [place], [place] [address] [id number] MR#: [id number] NAME: CORBY SUBRAMANIAN. ROOM: 566 Age: 80 Sex: M Admission Date: 09/13/2016 : 1935 Attending Physician: Jah Muller M.D. Primary Care Physician: Jah Muller M.D. Consultation Date: 09/19/2016 CONSULTATION REPORT VASCULAR SURGERY CONSULTATION REASON FOR CONSULTATION Peripheral artery disease. HISTORY OF PRESENT ILLNESS This is a 80-year-old male who initially presented to the emergency room at [facility] on 09/13/2016. He was admitted for mental status change and confusion. This is a patient who is on hemodialysis and goes Sunday, Sunday, Sunday. He has, in the past, had toe amputation related to nonhealing wounds. The patient is somewhat of a poor historian, so the majority of the information was obtained via chart review. Reviewing the records it looks like on 09/17/2016 podiatry performed a left heel wound debridement down to the level of the bone without application of a wound VAC, as well as a right heel and right dorsal foot debridement down to the level of the subcutaneous tissue with application of wound VAC. Patient also had wound debridement, plantar right second metatarsal down to the level of bone biopsy and attempted primary wound closure. He has underwent ankle to brachial indices and based on those results we have been asked to follow along with Mr. Subramanian to assess for wound healing. PAST MEDICAL HISTORY 1. Peripheral artery disease. 2. Sunday, Sunday, Sunday hemodialysis. 3. Diabetes mellitus. 4. Gout. 5. Hypertension. 6. Umbilical hernia. 7. History of right/left toe amputation. 8. Chronic anemia. ALLERGIES Penicillin. MEDICATION LIST 1. Lantus 6 units subcu at bedtime. 2. Allopurinol 100 mg p.o. daily 3. Neurontin 100 mg p.o. 3 times daily. 4. Multivitamin once daily. 5. Oxycodone/acetaminophen 10/325 q.4 hours as needed. 6. Synthroid 0.112 mg p.o. daily. 7. Flomax 0.4 mg at bedtime. Unit #: [id number] #: [id number] Patient: CORBY SUBRAMANIAN 8. 81 mg aspirin. 9. 75 mg Plavix p.o. daily. SOCIAL HISTORY The patient lives at home with his . Patient relates that he helps take care of his . He denies alcohol, drug use or smoking history. FAMILY HISTORY Parents are . Mother and father both had history of diabetes mellitus. REVIEW OF SYSTEMS CONSTITUTIONAL: Generalized weakness, admitted with confusion. EYES: Negative. EARS/NOSE/MOUTH/THROAT: Negative. RESPIRATORY: Negative. CARDIOVASCULAR: New onset of AFib. GASTROINTESTINAL: Negative. GENITOURINARY: Negative. HEME/LYMPH: Negative. ENDOCRINE: Negative. MUSCULOSKELETAL: Decreased mobility in bilateral lower extremities. (1) . INTEGUMENTARY: Bilateral heel wounds. NEUROLOGIC: Negative. PSYCHIATRIC: Negative. PHYSICAL EXAMINATION VITAL SIGNS: Temperature 98.0, heart rate 102, respirations 20, O2 sat 93%, blood pressure 126/49. GENERAL APPEARANCE: Well developed, well nourished, male in no acute distress. Answers some questions appropriately. Somewhat drowsy. Somewhat of a poor historian. HEENT: Normocephalic. Pupils equal, round, reactive to light. NECK: No carotid bruits noted. CARDIAC: Regular rate and rhythm with a soft systolic murmur noted. LUNGS: Clear to auscultation, nonlabored, room air. ABDOMEN: Positive bowel sounds, soft, nontender, no distention. Very prominent umbilical hernia noted on examination. MUSCULOSKELETAL: Moves all extremities with weakness with bilateral lower extremities. EXTREMITIES: Upper extremities - left upper arm fistula present with palpable thrill and audible bruit. VASCULAR: Palpable radial pulses bilaterally, palpable femoral pulses bilaterally, and palpable popliteal pulses bilaterally. Bilateral DP and PT pulses are nonpalpable bilaterally. INTEGUMENTARY: Bilateral feet are wrapped with gauze. VAC dressing evident under the gauze. Patient with a history of right third, fourth and fifth toe amputations and left fourth toe amputation as a result of trauma from stepping on a nail. No other obvious source, lesions, or nonhealing wounds. NEUROLOGIC: Cranial nerves II-XII grossly intact. PSYCHIATRIC: Oriented to person, place and time. DIAGNOSTIC STUDIES IMAGING STUDIES: The patient underwent ankle-brachial indices which demonstrate noncompressibility vessels bilaterally. He has a right toe pressure measurement 49 mmHg and a left toe pressure measurements 79 mmHg. Unit #: [id number] #: [id number] Patient: CORBY SUBRAMANIAN Review of the waveform indicates that he has prominent waveforms on JAQUI assessment. LABORATORY: BUN 73, creatinine 7.8, sodium 137, potassium 5.8, chloride 98, CO2 26. Hemoglobin 8.2, hematocrit 26, WBC 8.6, platelets 295. PT 12, INR 1.1, PTT 31.6. ASSESSMENT AND PLAN 1. Peripheral artery disease. 2. End stage renal disease. 3. Bilateral heel debridements. IMPRESSION Based on patient's JAQUI results, he may not have enough blood flow to adequately heal the bilateral heal debridement sites. Based on the study the vessels are noncompressible. However, the waveforms are present, indicating inflow. Recommend podiatry continue to treat the wound and assess for healing. If they fail to heal we can consider Mr. Subramanian for an arteriogram. Going forward, we will plan to see Mr. Subramanian back in the office in about two weeks to assess for healing and to discuss potential arteriogram if he has failed to heal. Dictated by... Urbano Marc APRN for Jr Chandra M.D. KIT/андрей TD: 09/20/2016 08:20 JOB #: [id number] CONSULTATION REPORT Page 1 of 1 X X CONSULTATION REPORT
[2016-09-13 09:48] LABS: BASOPHIL% 0.4 % (0-2.5); EOSINOPHIL% 0.6 % (0.0-7.0); HEMOGLOBIN 7.1 gm/dL (13.0-16.0); LYMPHOCYTE# 0.7 X10e3 (1.0-3.5); LYMPHOCYTE% 7.6 % (17.0-45.0); MEAN CELL VOLUME 93.6 FL (83-96); MEAN CORPUSCULAR HEMOGLOBIN 30.1 PG (28-34); MEAN CORPUSCULAR HGB CONC 32.2 g/dL (30-36); MEAN PLATELET VOLUME 7.5 FL (6.5-11.5); MONOCYTE# 0.8 X10e3 (0-1.0); MONOCYTE% 9.3 % (3.0-12.0); NEUTROPHIL# 7.1 X10e3 (1.5-7.1); NEUTROPHIL% 82.1 % (40-75); PLATELET COUNT 218 X10e3 (140-420); RED BLOOD COUNT 2.35 X10e (3.90-5.60); RED CELL DISTRIBUTION WIDTH 17.1 % (11.0-15.5); WHITE BLOOD COUNT 8.6 X10e3 (4.0-10.5)
[2016-09-13 09:50] LABS: DIFF IND YES
[2016-09-13 10:09] LABS: ANISOCYTOSIS SL; PLATELET ESTIMATE NORMAL (NORMAL)
[2016-09-13 10:15] LABS: ALBUMIN SERUM 2.7 g/dL (3.5-5.0); BILIRUBIN, DIRECT 0.2 mg/dL (0.0-0.2); BILIRUBIN,INDIRECT 0.5 mg/dL (0.0-0.9); BILIRUBIN,TOTAL 0.7 mg/dL (0.2-2.0); BUN/CREATININE RATIO 7.25; CALCIUM SERUM 8.2 mg/dL (8.4-10.2); CREATININE SERUM 6.2 mg/dL (0.6-1.4); GLOM FILT RATE Estimated 7.9 mL/min (>60); POTASSIUM 4.4 mmol/L (3.5-5.1); PROTEIN TOTAL SERUM 6.1 g/dL (6.0-8.3)
[~2016-09-13 10:49] MED LIST: ASPIRIN PO; ASPIRIN81 M1 PO; ASPIRIN81 M2 PO; ASPIRIN81 MG PO; ATENOLOL PO; B COMPLEX-VITA1 EACH PO; BACTRIM DS TABL1 TA1 PO; CATAPRES0.1 MG PO; CERTAGEN PO; CLONIDINE HCL0.1 MG; CLONIDINE HCL0.1 MG PO; CLOPIDOGREL75 MG PO; COLACE PO; COLACE50 MG PO; COLESTID PO; COLESTID1 GM PO; DAKIN'S MODIF1000 ML EXT; DIFLUCAN200 MG PO; ENDOCET 10-3251 TAB PO; FISH OIL 1,0001 CAP PO; FLAGYL PO; FLOMAX0.4 M1 PO; FOLIC ACID-B12/1 TAB PO; FOLIC ACID1 MG PO; FUROSEMIDE80 MG PO; GLUCOPHAGE XR500 MG PO; GLYNASE PO; HYDRALAZINE HC100 MG PO; LACTULOSE10 G/15 M1 PO; LANTUS100 U/ML SUBQ; LANTUS100 UNITS/ INJ; LASIX PO; LASIX80 MG PO; LISINOPRIL PO; LOPRESSOR PO; METOPROLOL SUC100 MG PO; MILK OF MAGNESIA PO; MIRALAX17 GM PO; MULTI VITAMIN1 EACH PO; MULTI-VITAMIN1 TAB PO; MULTIVITAMIN W-1 TAB PO; NEURONTIN PO; NEURONTIN100 MG PO; NOVOLIN 70/30 V10 M1 SQ; PAIN RELIEF500 M1 PO; PATIENT'S PHARMACY; PERCOCET10 PO; PERCOCET5/325 PO; PHOSLO667 M1 PO; PHOSLO667 MG PO; PROCRIT20000 U/ML; PROCRIT20000 U/ML IJ; ROCEPHIN1 G/VIAL IJ; SODIUM BICARBO650 MG PO; SYNTHROID PO; SYNTHROID0.1 MG PO; SYNTHROID112 MCG PO; TOBRAMYCIN; TOBRAMYCIN S40 MG/M1 IV; VANCOMYCIN; VANCOMYCIN HCL1 GM IV; VITAMIN D50000 UNIT DOB; ZYLOPRIM100 MG PO
[2016-09-13 15:40] LABS: FOLATE (FOLIC ACID) >23.6 ng/mL (>5.8)
[2016-09-13 15:47] LABS: ARTERIAL BLD GAS O2 SATURATION 94.3 % (90.0-100.0); ARTERIAL BLOOD GAS CARBOXY HB 1.2 %sat (0.0-9.0); ARTERIAL BLOOD GAS HCO3 29.1 mmol/L; ARTERIAL BLOOD GAS MET HB 0.6 %sat (0.0-2.0); ARTERIAL BLOOD GAS PCO2 44.8 mmHg (35.0-45.0); ARTERIAL BLOOD GAS pH 7.421 (7.350-7.450)
[2016-09-13 15:50] LABS: ARTERIAL BLOOD GAS ALLEN TEST NORMAL; ARTERIAL BLOOD GAS ART SITE RIGHT RADIAL; ARTERIAL BLOOD GAS PO2 79.1 mmHg (80.0-100); ARTERIAL DRAW? YES
[2016-09-13] MEDS ORDERED: COREG6.25 M1 PO ×2 (23:24→23:27)
[2016-09-14] MEDS ORDERED: ASPIRIN81 M2 PO (00:51)
[2016-09-14 04:32] LABS: BASOPHIL% 0.7 % (0-2.5); DIFF IND NO; EOSINOPHIL# 0.1 X10e3 (0-0.7); EOSINOPHIL% 1.7 % (0.0-7.0); HEMATOCRIT 26.5 % (38.0-50.0); HEMOGLOBIN 8.5 gm/dL (13.0-16.0); LYMPHOCYTE# 0.8 X10e3 (1.0-3.5); LYMPHOCYTE% 11.4 % (17.0-45.0); MEAN CELL VOLUME 91.2 FL (83-96); MEAN CORPUSCULAR HEMOGLOBIN 29.4 PG (28-34); MEAN CORPUSCULAR HGB CONC 32.2 g/dL (30-36); MEAN PLATELET VOLUME 7.7 FL (6.5-11.5); MONOCYTE# 0.6 X10e3 (0-1.0); MONOCYTE% 8.3 % (3.0-12.0); NEUTROPHIL# 5.3 X10e3 (1.5-7.1); NEUTROPHIL% 77.9 % (40-75); PLATELET COUNT 225 X10e3 (140-420); RED CELL DISTRIBUTION WIDTH 20.3 % (11.0-15.5); WHITE BLOOD COUNT 6.8 X10e3 (4.0-10.5)
[2016-09-14 05:00] LABS: BUN/CREATININE RATIO 6.66; CALCIUM SERUM 8.6 mg/dL (8.4-10.2); CREATININE SERUM 3.6 mg/dL (0.6-1.4); GLOM FILT RATE Estimated 15.1 mL/min (>60); POTASSIUM 4.3 mmol/L (3.5-5.1)
[2016-09-14 10:37] LABS: THYROID STIMULATING HORMONE 1.32 uIU/ml (0.34-5.60)
[2016-09-14 10:44] LABS: FREE THYROXIN (T4) 1.13 ng/dL (0.58-1.64)
[2016-09-14 11:10] LABS: URINE SOURCE CLEAN CATCH
[2016-09-14 11:20] LABS: URINE APPEARANCE CLEAR; URINE BILIRUBIN NEG (NEG); URINE BLOOD 2+ (NEG); URINE COLOR YELLOW; URINE GLUCOSE NEG (NEG); URINE KETONE NEG (NEG); URINE LEUKOCYTE ESTERASE 1+ (NEG); URINE NITRATE NEG (NEG); URINE PH 8.5 (5-8); URINE PROTEIN 2+ (NEG); URINE SPECIFIC GRAVITY 1.012 (1.003-1.035); URINE UROBILINOGEN 0.2 MG/DL (NEG)
[2016-09-14 11:22] LABS: CULTURE INDICATED? YES; URBCS1 AUWI 25-50 /[HPF] (0-2); URINE BACTERIA AUWI NEG (NEGATIVE); URINE SQUAMOUS EPITHELIAL CELL NONE SEEN /[HPF]
[2016-09-14 11:34] LABS: AMPHETAMINE NEG (NEG); BARBITURATES NEG (NEG); BENZODIAZEPINES NEG (NEG); COCAINE NEG (NEG); MARIJUANA NEG (NEG); OPIATES NEG (NEG); TRICYCLIC ANTIDEPRESSANTS NEG (NEG); U METHADONE NEG (NEG)
[2016-09-14 17:03] LABS: CK TOTAL 17 IU/L (36-174)
[2016-09-15 07:45] LABS: HEMATOCRIT 25.5 % (38.0-50.0); HEMOGLOBIN 8.1 gm/dL (13.0-16.0); MEAN CELL VOLUME 91.9 FL (83-96); MEAN CORPUSCULAR HEMOGLOBIN 29.3 PG (28-34); MEAN CORPUSCULAR HGB CONC 31.9 g/dL (30-36); MEAN PLATELET VOLUME 8.1 FL (6.5-11.5); RED BLOOD COUNT 2.78 X10e (3.90-5.60); RED CELL DISTRIBUTION WIDTH 19.5 % (11.0-15.5); WHITE BLOOD COUNT 7.2 X10e3 (4.0-10.5)
[2016-09-15 08:31] LABS: BUN/CREATININE RATIO 8.75; CALCIUM SERUM 8.3 mg/dL (8.4-10.2); CREATININE SERUM 5.6 mg/dL (0.6-1.4); GLOM FILT RATE Estimated 8.9 mL/min (>60); MAGNESIUM 1.9 mg/dL (1.6-3.0); POTASSIUM 4.6 mmol/L (3.5-5.1)
[2016-09-16 09:03] LABS: HEMOGLOBIN 9.1 gm/dL (13.0-16.0); MEAN CELL VOLUME 92.4 FL (83-96); MEAN CORPUSCULAR HGB CONC 31.3 g/dL (30-36); MEAN PLATELET VOLUME 8.1 FL (6.5-11.5); RED BLOOD COUNT 3.14 X10e (3.90-5.60); RED CELL DISTRIBUTION WIDTH 19.3 % (11.0-15.5); WHITE BLOOD COUNT 9.2 X10e3 (4.0-10.5)
[2016-09-16 09:46] LABS: BUN/CREATININE RATIO 8.75; CALCIUM SERUM 9.2 mg/dL (8.4-10.2); CREATININE SERUM 4.8 mg/dL (0.6-1.4); GLOM FILT RATE Estimated 10.7 mL/min (>60); MAGNESIUM 1.9 mg/dL (1.6-3.0); POTASSIUM 4.7 mmol/L (3.5-5.1)
[2016-09-17 06:52] LABS: HEMATOCRIT 26.8 % (38.0-50.0); HEMOGLOBIN 8.5 gm/dL (13.0-16.0); MEAN CELL VOLUME 91.4 FL (83-96); MEAN CORPUSCULAR HEMOGLOBIN 29.1 PG (28-34); MEAN CORPUSCULAR HGB CONC 31.8 g/dL (30-36); RED BLOOD COUNT 2.94 X10e (3.90-5.60); RED CELL DISTRIBUTION WIDTH 19.6 % (11.0-15.5); WHITE BLOOD COUNT 8.5 X10e3 (4.0-10.5)
[2016-09-18 06:39] LABS: HEMOGLOBIN 8.2 gm/dL (13.0-16.0); MEAN CELL VOLUME 91.5 FL (83-96); MEAN CORPUSCULAR HGB CONC 31.7 g/dL (30-36); RED BLOOD COUNT 2.84 X10e (3.90-5.60); RED CELL DISTRIBUTION WIDTH 19.4 % (11.0-15.5); WHITE BLOOD COUNT 8.6 X10e3 (4.0-10.5)
[2016-09-18 07:16] LABS: BUN/CREATININE RATIO 9.35; CALCIUM SERUM 8.8 mg/dL (8.4-10.2); CREATININE SERUM 7.8 mg/dL (0.6-1.4); GLOM FILT RATE Estimated 5.9 mL/min (>60)
[2016-09-18 07:18] LABS: POTASSIUM 5.8 mmol/L (3.5-5.1)
[2016-09-20 06:44] LABS: HEMATOCRIT 25.8 % (38.0-50.0); HEMOGLOBIN 8.2 gm/dL (13.0-16.0); MEAN CELL VOLUME 90.2 FL (83-96); MEAN CORPUSCULAR HEMOGLOBIN 28.8 PG (28-34); MEAN CORPUSCULAR HGB CONC 31.9 g/dL (30-36); MEAN PLATELET VOLUME 7.8 FL (6.5-11.5); RED BLOOD COUNT 2.86 X10e (3.90-5.60); RED CELL DISTRIBUTION WIDTH 19.5 % (11.0-15.5); WHITE BLOOD COUNT 7.2 X10e3 (4.0-10.5)
[2016-09-20 07:08] LABS: BUN/CREATININE RATIO 10.35; CALCIUM SERUM 9.1 mg/dL (8.4-10.2); CREATININE SERUM 5.7 mg/dL (0.6-1.4); GLOM FILT RATE Estimated 8.7 mL/min (>60)
[2016-09-22 05:55] LABS: HEMATOCRIT 25.9 % (38.0-50.0); HEMOGLOBIN 8.2 gm/dL (13.0-16.0); MEAN CELL VOLUME 91.9 FL (83-96); MEAN CORPUSCULAR HEMOGLOBIN 29.1 PG (28-34); MEAN CORPUSCULAR HGB CONC 31.6 g/dL (30-36); MEAN PLATELET VOLUME 8.4 FL (6.5-11.5); RED BLOOD COUNT 2.82 X10e (3.90-5.60); WHITE BLOOD COUNT 7.8 X10e3 (4.0-10.5)
[2016-09-22 06:39] LABS: BUN/CREATININE RATIO 9.66; CALCIUM SERUM 9.3 mg/dL (8.4-10.2); GLOM FILT RATE Estimated 8.2 mL/min (>60); POTASSIUM 4.9 mmol/L (3.5-5.1)
== END 2016-09-23 17:00 | DRG 623 ==
LOC: CED 10:49 → CEDOF 11:50 → C5C 20:34
PROVIDERS: Emergency Medicine; Internal Medicine; Internal Medicine Nephrology; Nurse Practitioner; Podiatrist Foot & Ankle Surgery
PROC: 30233N1 Transfusion of Nonautologous Red Blood Cells into Peripheral Vein, Percutaneous Approach (ICD-10-PCS; 2016-09-13)
PROC: B24BYZZ Ultrasonography of Heart with Aorta using Other Contrast (ICD-10-PCS; 2016-09-14)
PROC: 5A1D60Z (ICD-10-PCS; 2016-09-15)
PROC: 3E0234Z Introduction of Serum, Toxoid and Vaccine into Muscle, Percutaneous Approach (ICD-10-PCS; 2016-09-15)
PROC: 0JBQ0ZZ Excision of Right Foot Subcutaneous Tissue and Fascia, Open Approach (ICD-10-PCS; 2016-09-17)
PROC: 0QBN0ZZ Excision of Right Metatarsal, Open Approach (ICD-10-PCS; 2016-09-17)
PROC: 0QBN0ZX Excision of Right Metatarsal, Open Approach, Diagnostic (ICD-10-PCS; 2016-09-17)
PROC: 0QBM0ZZ Excision of Left Tarsal, Open Approach (ICD-10-PCS; principal; 2016-09-17 07:30)
DX: E11.621 Type 2 diabetes mellitus with foot ulcer (principal); L97.429 Non-pressure chronic ulcer of left heel and midfoot with unspecified severity; M86.171 Other acute osteomyelitis, right ankle and foot; I47.2 Ventricular tachycardia; N18.6 End stage renal disease; E11.21 Type 2 diabetes mellitus with diabetic nephropathy; E11.40 Type 2 diabetes mellitus with diabetic neuropathy, unspecified; I44.1 Atrioventricular block, second degree; L97.419 Non-pressure chronic ulcer of right heel and midfoot with unspecified severity; M86.672 Other chronic osteomyelitis, left ankle and foot; M86.671 Other chronic osteomyelitis, right ankle and foot; L03.115 Cellulitis of right lower limb; E11.69 Type 2 diabetes mellitus with other specified complication; Z99.2 Dependence on renal dialysis; E11.319 Type 2 diabetes mellitus with unspecified diabetic retinopathy without macular edema; I73.9 Peripheral vascular disease, unspecified; E03.9 Hypothyroidism, unspecified; N40.0 Benign prostatic hyperplasia without lower urinary tract symptoms; M48.06 Spinal stenosis, lumbar region; M10.9 Gout, unspecified; D64.9 Anemia, unspecified; Z79.4 Long term (current) use of insulin; Z88.0 Allergy status to penicillin; Z79.82 Long term (current) use of aspirin; I49.3 Ventricular premature depolarization; I49.1 Atrial premature depolarization; M62.3 Immobility syndrome (paraplegic); Z23 Encounter for immunization; R41.0 Disorientation, unspecified
CPT/HCPCS: 36415; 36600; 70450; 70551; 71010; 73620; 73718; 80048; 80061; 80076; 80307; 81003; 82140; 82550; 82607; 82746; 82803; 82947; 83735; 84439; 84443; 84484; 85025; 85027; 85652; 86140; 86706; 86850; 86900; 86901; 86923; 87070; 87077; 87086; 87186; 87205; 87340; 88305; 90688; 93005; 93306; 93922; 93970; 94762; 97110; 97163; 97166; 97530; 99285; G0480; G8978-GP; G8979-GP; G8987-GO; G8988-GO; J0696; J0885; J1644; J1650; J1815; J3010; P9016; Q4081